=== PATIENT | female | born 1990 | race Hispanic/Latino ===

== ENCOUNTER 2017-05-11 08:04 | Emergency (ER) | payer OTHER ==
[2017-05-11 08:04] VITALS: BMI 30.2
[2017-05-11 08:11] VITALS: PULSE 75; RESP 16; TEMP 98.1
--- NOTE | 2017-05-11 08:22 | ED PDOC ---
Arrival/HPI - General Chief Complaint: Lower Extremity Problem/Injury Time Seen by Provider: 05/11/17 08:14 Historian: Patient - History of Present Illness Narrative History of Present Illness (Text): 05/11/17 08:15 26 year old female whose past medical history includes hypertension presents to the emergency department with right big toe pain after dropping a chair on it while at work today. Patient states she took Tylenol with no improvement. Denies any other complaints. PMD: Dr. Vera Time/Duration: Prior to Arrival Symptom Onset: Sudden Symptom Course: Unchanged Modifying Factors (Text): Tylenol with no improvement Past Medical History - Provider Review Nursing Documentation Reviewed: Yes - Infectious Disease Hx of Infectious Diseases: None - Tetanus Immunization Tetanus Immunization: Up to Date - Cardiac Hx Cardiac Disorders: Yes Hx Hypertension: Yes - Pulmonary Hx Respiratory Disorders: No - Neurological Hx Neurological Disorder: No - HEENT Hx HEENT Disorder: No - Renal Hx Renal Disorder: No - Endocrine/Metabolic Hx Endocrine Disorders: No - Hematological/Oncological Hx Blood Disorders: No - Integumentary Hx Dermatological Disorder: No - Musculoskeletal/Rheumatological Hx Musculoskeletal Disorders: No - Gastrointestinal Hx Gastrointestinal Disorders: No - Genitourinary/Gynecological Hx Genitourinary Disorders: No - Psychiatric Hx Psychophysiologic Disorder: Yes Hx Anxiety: Yes Hx Depression: No Hx Emotional Abuse: No Hx Physical Abuse: No Hx Substance Use: No - Past Surgical History Past Surgical History: No Previous - Surgical History Other/Comment: SX FOR LIP - Anesthesia Hx Anesthesia: Yes Hx Anesthesia Reactions: No Hx Malignant Hyperthermia: No - Suicidal Assessment Feels Threatened In Home Enviroment: No Family/Social History - Physician Review Nursing Documentation Reviewed: Yes Family/Social History: Unknown Family HX Smoking Status: Never Smoked Hx Alcohol Use: Yes Frequency of alcohol use: Socially Hx Substance Use: No Allergies/Home Meds Allergies/Adverse Reactions: Allergies latex Allergy (Verified 05/11/17 08:09) RASH Sulfa (Sulfonamide Antibiotics) Allergy (Verified 05/11/17 08:09) RASH Home Medications: Home Meds Medication Instructions Recorded Confirmed Metoprolol Succinate [Toprol XL] 50 mg PO DAILY 07/01/16 05/11/17 Review of Systems - Review of Systems Musculoskeletal: Other (Left big toe pain ) Physical Exam Vital Signs Reviewed: Yes Vital Signs Temp Pulse Resp BP Pulse Ox 05/11/17 09:18 75 16 155/98 H 98 05/11/17 08:11 98.1 F 75 16 161/105 H 99 Temperature: Afebrile Blood Pressure: Normal Pulse: Regular Respiratory Rate: Normal Appearance: Positive for: Well-Appearing, Non-Toxic Pain Distress: Mild Mental Status: Positive for: Alert and Oriented X 3 - Systems Exam Lower Extremity: Present: Other (Tenderness and ecchymosis to left big toe. No blood under toe nail. No tenderness to other parts of the toe. ) Skin: Present: Warm, Dry, Normal Color. No: Rashes Psychiatric: Present: Alert, Oriented x 3, Normal Insight, Normal Concentration Medical Decision Making ED Course and Treatment: Impression: 26 year old female whose past medical history includes hypertension presents to the emergency department with right big toe pain after dropping a chair on it while at work today. Differential Diagnosis included but are not limited to: Right toe pain r/o fracture Plan: -- XR right foot -- Reassess and disposition Progress Notes: 05/11/17 09:05 X-ray negative as read by me. Will discharge patient to follow up with PMD. Surgical show given for support. Patient agrees with plan. - RAD Interpretation Radiology Orders: 05/11/17 08:14 FOOT RIGHT 3 VIEWS ROUTINE [RAD] Stat - Scribe Statement The provider has reviewed the documentation as recorded by the Rhiannon Sparrow Provider Scribe Attestation: All medical record entries made by the Scribe were at my direction and personally dictated by me. I have reviewed the chart and agree that the record accurately reflects my personal performance of the history, physical exam, medical decision making, and the department course for this patient. I have also personally directed, reviewed, and agree with the discharge instructions and disposition. Disposition/Present on Arrival - Present on Arrival Any Indicators Present on Arrival: No History of DVT/PE: No History of Uncontrolled Diabetes: No Urinary Catheter: No History of Decub. Ulcer: No History Surgical Site Infection Following: None - Disposition Have Diagnosis and Disposition been Completed?: Yes Diagnosis: Toe contusion Disposition: HOME/ ROUTINE Disposition Time: 09:05 Patient Plan: Discharge Condition: IMPROVED Discharge Instructions (ExitCare): Foot Contusion (ED) Additional Instructions: Ms Chang, thank you for letting us take care of you today. Your provider was Dr. Scott. You were treated for Toe contusion. The emergency medical care you received today was directed at your acute symptoms. If you were prescribed any medication, please fill it and take as directed. It may take several days for your symptoms to resolve. Return to the Emergency Department if your symptoms worsen, do not improve, or if you have any other problems. Please contact your doctor or call one of the physicians/clinics you have been referred to that are listed on the Patient Visit Information form that is included in your discharge packet. Bring any paperwork you were given at discharge with you along with any medications you are taking to your follow up visit. Our treatment cannot replace ongoing medical care by a primary care provider (PCP) outside of the emergency department. Thank you for allowing the [facility] team to be part of your care today. If you had an X-Ray or CT scan: A Radiologist will review the ED reading if any change in treatment is needed we will contact you. If you had a blood, urine, or wound culture: It will take several days for the results, if any change in treatment is needed we will contact you. If you had an STI test: It will take 48 hours for the results. Please call after 1 week if you have not heard back. Prescriptions: Ibuprofen [Motrin] 600 mg PO Q6 PRN #30 tab PRN Reason: Pain, Moderate (4-7) Referrals: Nafisa Vera MD [Primary Care Provider] - Follow up with primary Forms: [employer] (Serbian), WORK NOTE
[2017-05-11 09:19] VITALS: BP 155/98; O2SAT 98
--- NOTE | 2017-05-11 09:21 | RAD ---
PROCEDURE: Right Foot Radiographs. HISTORY: injury r/o fx COMPARISON: None. FINDINGS: BONES: Normal. No fracture. JOINTS: Normal. SOFT TISSUES: Normal. OTHER FINDINGS: None. IMPRESSION: Normal right foot radiographs.
== END 2017-05-11 09:19 | disposition home or self-care (01) ==
LOC: ED 08:04
DX: S90.111A Contusion of right great toe without damage to nail, initial encounter (principal); W20.8XXA Other cause of strike by thrown, projected or falling object, initial encounter; Y92.239 Unspecified place in hospital as the place of occurrence of the external cause; Y99.0 Civilian activity done for income or pay; I10 Essential (primary) hypertension

== ENCOUNTER 2018-02-02 12:54 | Emergency (ER) | payer BC, OTHER ==
[2018-02-02 12:54] VITALS: BMI 30.2
[2018-02-02 13:16] VITALS: TEMP 98.5
[2018-02-02] MEDS ORDERED: Apap-Butalbital-Caffeine 325-50-40mg Tab PO STA (13:23)
[2018-02-02] MEDS ORDERED: Sodium Chloride 0.9% 1,000 ML IV STA (13:24)
[2018-02-02 13:43] LABS: BASO # 0.05 K/mm3 (0.0-2.0); BASO % 0.6 % (0.0-3.0); EOS # 0.2 (0.0-0.7); EOS % 2.2 % (1.5-5.0); GRAN # 3.49 (1.4-6.5); HEMOGLOBIN 13.6 g/dL (12.0-16.0); LYMPH # 3.9 (1.2-3.4); LYMPH % 47.4 % (22.0-35.0); MEAN CORPUSCULAR HEMOGLOBIN 28.9 pg (25.0-35.0); MEAN CORPUSCULAR HGB CONC 33.3 g/dl (31.0-37.0); MEAN PLATELET VOLUME 10.4 fl (7.0-11.0); MONO # 0.7 (0.1-0.6); MONO % 7.8 % (1.0-6.0); RBC 4.7 10^6/uL (3.5-6.1); RED CELL DISTRIBUTION WIDTH 13.8 % (11.5-14.5); WHITE BLOOD COUNT 8.3 10^3/ul (4.5-11.0)
[2018-02-02 13:54] LABS: ALB/GLOB RATIO 1.3 (1.1-1.8); ALBUMIN 4.6 g/dL (3.0-4.8); CALCIUM 9.9 mg/dL (8.4-10.5); GFR AFRICAN-AMERICAN > 60; GFR NON-AFRICAN AMERICAN > 60; INR 0.97 (0.93-1.08); PARTIAL THROMBOPLASTIN TIME 30.6 Seconds (25.1-36.5); PROTHROMBIN TIME 11.2 SECONDS (9.4-12.5)
[2018-02-02 14:01] LABS: ALT/SGPT 30 U/L (7-56); AST/SGOT 25 U/L (14-36); BLOOD UREA NITROGEN 12 mg/dL (7-21)
[2018-02-02 14:05] LABS: TROPONIN I < 0.01 ng/mL
[2018-02-02 14:16] LABS: URINE BILIRUBIN NEGATIVE (NEGATIVE); URINE BLOOD NEGATIVE (NEGATIVE); URINE GLUCOSE (UA) NEGATIVE (NEGATIVE); URINE LEUKOCYTE ESTERASE NEGATIVE Leu/uL (NEGATIVE); URINE PROTEIN NEGATIVE mg/dL (<30 mg/dL); URINE UROBILINOGEN 0.2 E.U./dL (<1 E.U./dL)
[2018-02-02 14:18] LABS: URINE APPEARANCE CLEAR (CLEAR); URINE COLOR YELLOW (YELLOW)
--- NOTE | 2018-02-02 14:51 | CT ---
PROCEDURE: CT HEAD WITHOUT CONTRAST. HISTORY: headache COMPARISON: None available. TECHNIQUE: Axial computed tomography images were obtained through the head/brain without intravenous contrast. Radiation dose: Total exam DLP = 899 mGy-cm. This CT exam was performed using one or more of the following dose reduction techniques: Automated exposure control, adjustment of the mA and/or kV according to patient size, and/or use of iterative reconstruction technique. FINDINGS: HEMORRHAGE: No intracranial hemorrhage. BRAIN: No mass effect or edema. No atrophy or chronic microvascular ischemic changes. VENTRICLES: Unremarkable. No hydrocephalus. CALVARIUM: Unremarkable. PARANASAL SINUSES: Unremarkable as visualized. No significant inflammatory changes. MASTOID AIR CELLS: Unremarkable as visualized. No inflammatory changes. OTHER FINDINGS: None. IMPRESSION: Normal CT of the Head.
--- NOTE | 2018-02-02 16:14 | ED PDOC ---
Arrival/HPI - General Chief Complaint: Headache Time Seen by Provider: 02/02/18 13:21 Historian: Patient - History of Present Illness Narrative History of Present Illness (Text): 02/02/18 16:10 27yo female with PMhx of hypertension who present with complaint of sudden onset of severe frontal headache with associated nausea, vomiting, photophobia. Notes 3episodes of nonbloody/billious vomiting since the headache started this afternoon. She denies previous history of this headache. Denies trauma, focal weakness, slurred speech, visual changes, abdominal pain, any other complaint. She states that she did not take any antihypertensive today. Past Medical History - Provider Review Nursing Documentation Reviewed: Yes - Infectious Disease Hx of Infectious Diseases: None - Tetanus Immunization Tetanus Immunization: Up to Date - Cardiac Hx Cardiac Disorders: Yes Hx Hypertension: Yes - Pulmonary Hx Respiratory Disorders: No - Neurological Hx Neurological Disorder: No - HEENT Hx HEENT Disorder: No - Renal Hx Renal Disorder: No - Endocrine/Metabolic Hx Endocrine Disorders: No - Hematological/Oncological Hx Blood Disorders: No - Integumentary Hx Dermatological Disorder: No - Musculoskeletal/Rheumatological Hx Musculoskeletal Disorders: No - Gastrointestinal Hx Gastrointestinal Disorders: No - Genitourinary/Gynecological Hx Genitourinary Disorders: No - Psychiatric Hx Psychophysiologic Disorder: Yes Hx Anxiety: Yes Hx Depression: No Hx Emotional Abuse: No Hx Physical Abuse: No Hx Substance Use: No - Past Surgical History Past Surgical History: No Previous - Surgical History Other/Comment: SX FOR LIP - Anesthesia Hx Anesthesia: Yes Hx Anesthesia Reactions: No Hx Malignant Hyperthermia: No - Suicidal Assessment Feels Threatened In Home Enviroment: No Family/Social History - Physician Review Nursing Documentation Reviewed: Yes Family/Social History: Unknown Family HX Smoking Status: Current Some Days Smoker Hx Alcohol Use: Yes Frequency of alcohol use: Socially Hx Substance Use: No Allergies/Home Meds Allergies/Adverse Reactions: Allergies latex Allergy (Verified 05/11/17 08:09) RASH Sulfa (Sulfonamide Antibiotics) Allergy (Verified 05/11/17 08:09) RASH Home Medications: Home Meds Medication Instructions Recorded Confirmed Nebivolol [Bystolic] 10 mg PO DAILY 02/02/18 02/02/18 Review of Systems - Physician Review All systems were reviewed & negative as marked: Yes - Review of Systems Constitutional: Normal Eyes: Normal ENT: Normal Respiratory: Normal Cardiovascular: Normal Gastrointestinal: Nausea, Vomiting. absent: Abdominal Pain, Constipation, Diarrhea, Hematochezia, Hematemesis Genitourinary Female: Normal Musculoskeletal: Normal Skin: Normal Neurological: Headache. absent: Dizziness, Focal Weakness, Gait Changes, Speech Changes, Facial Droop Endocrine: Normal Hemo/Lymphatic: Normal Psychiatric: Normal Physical Exam Vital Signs Reviewed: Yes Vital Signs Temp Pulse Resp BP Pulse Ox 02/02/18 16:32 57 L 18 125/87 100 02/02/18 13:15 98.5 F 79 19 149/96 H 99 Temperature: Afebrile Blood Pressure: Normal Pulse: Regular Respiratory Rate: Normal Appearance: Positive for: Well-Appearing, Non-Toxic, Comfortable Pain Distress: None Mental Status: Positive for: Alert and Oriented X 3 - Systems Exam Head: Present: Atraumatic, Normocephalic Pupils: Present: PERRL Extroacular Muscles: Present: EOMI Conjunctiva: Present: Normal Mouth: Present: Moist Mucous Membranes Neck: Present: Normal Range of Motion. No: Meningeal Signs Respiratory/Chest: Present: Clear to Auscultation, Good Air Exchange. No: Respiratory Distress, Accessory Muscle Use Cardiovascular: Present: Regular Rate and Rhythm, Normal S1, S2. No: Murmurs Abdomen: Present: Normal Bowel Sounds, Other (Soft). No: Tenderness, Distention , Peritoneal Signs, Rebound, Guarding, McBurney's Point Tender, Rovsing's Sign Present Back: Present: Normal Inspection Upper Extremity: Present: Normal Inspection. No: Cyanosis, Edema Lower Extremity: Present: Normal Inspection. No: Edema Neurological: Present: GCS=15, CN II-XII Intact, Speech Normal, Motor Func Grossly Intact, Normal Sensory Function, Norm Deep Tendon Reflexes, Gait Normal , Memory Normal, Normal 2Pt Descrimination, Other (No focal neurological deficit ) Skin: Present: Warm, Dry, Normal Color. No: Rashes Psychiatric: Present: Alert, Oriented x 3, Normal Insight, Normal Concentration Medical Decision Making ED Course and Treatment: 02/02/18 19:52 Pt's headache improved in ED with medication. She was neurologically intact. Her lab was unremarkable. Head CT - Negative Result was DW the pt and she was Dc home with Fioricet. Referred to a Neuro. - Lab Interpretations Lab Results: 02/02/18 13:26 02/02/18 13:26 Lab Results 02/02/18 15:07: Influenza Typ A,B (EIA) Negative for flu a/b 02/02/18 14:00: Urine Color Yellow, Urine Appearance Clear, Urine pH 6.0, Ur Specific [place] >= 1.030, Urine Protein Negative, Urine Glucose (UA) Negative, Urine Ketones Negative, Urine Blood Negative, Urine Nitrate Negative, Urine Bilirubin Negative, Urine Urobilinogen 0.2, Ur Leukocyte Esterase Negative 02/02/18 13:26: Beta HCG, Quant < 2.39 02/02/18 13:26: Sodium 142, Potassium 4.1, Chloride 103, Carbon Dioxide 26, Anion Gap 17, BUN 12, Creatinine 0.7, Est GFR ( Amer) > 60, Est GFR (Non- Af Amer) > 60, Random Glucose 92, Calcium 9.9, Magnesium 1.9, Total Bilirubin 0.2, AST 25, ALT 30, Alkaline Phosphatase 51, Lactate Dehydrogenase 571, Total Creatine Kinase 91, Troponin I < 0.01, Total Protein 8.1, Albumin 4.6, Globulin 3.5, Albumin/Globulin Ratio 1.3 02/02/18 13:26: PT 11.2, INR 0.97, APTT 30.6 02/02/18 13:26: WBC 8.3, RBC 4.70, Hgb 13.6, Hct 40.9, MCV 87.0, MCH 28.9, MCHC 33.3, RDW 13.8, Plt Count 390, MPV 10.4, Gran % 42.0 L, Lymph % (Auto) 47.4 H, Brooke % (Auto) 7.8 H, Eos % (Auto) 2.2, Baso % (Auto) 0.6, Gran # 3.49, Lymph # ( Auto) 3.9 H, Brooke # (Auto) 0.7 H, Eos # (Auto) 0.2, Baso # (Auto) 0.05 - RAD Interpretation Radiology Orders: 02/02/18 14:06 HEAD W/O CONTRAST [CT] Stat - Medication Orders Current Medication Orders: Discontinued Medications Acetaminophen/Butalbital/Caffeine (Fioricet) 1 tab PO ONCE STA Stop: 02/02/18 13:24 Last Admin: 02/02/18 14:00 Dose: 1 tab MAR Pain Assessment Document 02/02/18 14:00 HI (Rec: 02/02/18 14:37 HI [id number]) Pain Reassessment Is this a pain reassessment? No Re-Assess: [facility] Pain Assessment Document 02/02/18 15:00 HI (Rec: 02/02/18 15:38 HI [id number]) Pain Reassessment Is this a pain reassessment? Yes Sleep Is patient sleeping during reassessment? No Presence of Pain Presence of Pain Yes Pain Scale Used Pain Scale Used Numeric Description Description Pressure Intensity of Pain at present 6 Acceptable Level of Pain 2 Sodium Chloride (Sodium Chloride 0.9%) 1,000 mls @ 999 mls/hr IV .Q1H1M STA Stop: 02/02/18 14:24 Last Admin: 02/02/18 14:00 Dose: 999 mls/hr eMAR Start Stop Document 02/02/18 14:00 HI (Rec: 02/02/18 14:37 HI [id number]) Intravenous Solution Start Date 02/02/18 Start Time 14:00 Ketorolac Tromethamine (Toradol) 30 mg IVP STAT STA Stop: 02/02/18 15:37 Last Admin: 02/02/18 16:11 Dose: 30 mg [facility] Pain Assessment Document 02/02/18 16:11 HI (Rec: 02/02/18 16:11 HI [id number]) Pain Reassessment Is this a pain reassessment? Yes IVP Administration Document 02/02/18 16:11 HI (Rec: 02/02/18 16:11 HI [id number]) Charges for Administration # of IVP Administrations 1 Ondansetron HCl (Zofran Inj) 4 mg IVP STAT STA Stop: 02/02/18 13:24 Last Admin: 02/02/18 14:00 Dose: 4 mg IVP Administration Document 02/02/18 14:00 HI (Rec: 02/02/18 14:37 HI [id number]) Charges for Administration # of IVP Administrations 1 Disposition/Present on Arrival - Present on Arrival Any Indicators Present on Arrival: No History of DVT/PE: No History of Uncontrolled Diabetes: No Urinary Catheter: No History of Decub. Ulcer: No History Surgical Site Infection Following: None - Disposition Have Diagnosis and Disposition been Completed?: Yes Diagnosis: Headache Disposition: HOME/ ROUTINE Disposition Time: 16:20 Patient Plan: Discharge Condition: STABLE Discharge Instructions (ExitCare): Headache, Adult (DC) Additional Instructions: Follow up with your doctor/Neurologist Return to ED for any new or worsening symptoms Prescriptions: Acetaminophen/Butalbital/Caf [Fioricet] 1 tab PO Q4 #15 tab Ondansetron ODT [Zofran ODT] 4 mg PO Q6 #7 odt Referrals: Nafisa Vera MD [Primary Care Provider] - Follow up with primary Forms: [facility] (Faroese), SCHOOL NOTE, WORK NOTE
[2018-02-02 16:32] VITALS: BP 125/87; PULSE 57; RESP 18; O2SAT 100
--- NOTE | 2018-02-03 11:30 | CARD ---
APPROVED REPORT EKG Measurement Heart [id number] <Conclusion> Normal sinus rhythm with sinus arrhythmia Possible Left atrial enlargement T wave inversion V1-V3.
== END 2018-02-02 16:48 | disposition home or self-care (01) ==
LOC: ED 12:54
DX: R51 Headache (principal); F17.200 Nicotine dependence, unspecified, uncomplicated; I10 Essential (primary) hypertension
CPT/HCPCS: 70450; 80053; 81003; 82550; 83615; 83735; 84484; 84702; 85025; 85610; 85730; 87804; 93005; 96374; 96375; 99285; J1885; J2405; J7040

== ENCOUNTER 2018-04-09 14:24 | Emergency (ER) | payer OTHER ==
[2018-04-09 14:24] VITALS: BMI 30.2
[2018-04-09 14:30] VITALS: TEMP 97.8
--- NOTE | 2018-04-09 14:47 | ED PDOC ---
Arrival/HPI - General Chief Complaint: Female Genitourinary Time Seen by Provider: 04/09/18 14:34 Historian: Patient - History of Present Illness Narrative History of Present Illness (Text): 04/09/18 14:41 27yo female with history of hypertension who present for evaluation s/p she experienced burning sensation after wiping her self with tissue in ICU bathroom. She notes that the bathroom was cleaned with unknown chemical today. States the burning sensation is currently resolved after wiping herself with patient care wipes. States she is currently menstruating and declined pelvic test. She denies any other complaint. Past Medical History - Provider Review Nursing Documentation Reviewed: Yes - Infectious Disease Hx of Infectious Diseases: None - Tetanus Immunization Tetanus Immunization: Up to Date - Cardiac Hx Cardiac Disorders: Yes Hx Hypertension: Yes - Pulmonary Hx Respiratory Disorders: No - Neurological Hx Neurological Disorder: No - HEENT Hx HEENT Disorder: No - Renal Hx Renal Disorder: No - Endocrine/Metabolic Hx Endocrine Disorders: No - Hematological/Oncological Hx Blood Disorders: No - Integumentary Hx Dermatological Disorder: No - Musculoskeletal/Rheumatological Hx Musculoskeletal Disorders: No - Gastrointestinal Hx Gastrointestinal Disorders: No - Genitourinary/Gynecological Hx Genitourinary Disorders: No - Psychiatric Hx Psychophysiologic Disorder: Yes Hx Anxiety: Yes Hx Substance Use: No - Past Surgical History Past Surgical History: No Previous - Surgical History Other/Comment: SX FOR LIP - Anesthesia Hx Anesthesia: Yes Hx Anesthesia Reactions: No Hx Malignant Hyperthermia: No - Suicidal Assessment Feels Threatened In Home Enviroment: No Family/Social History - Physician Review Nursing Documentation Reviewed: Yes Family/Social History: Unknown Family HX Smoking Status: Light Smoker < 10 Cigarettes Daily Hx Alcohol Use: Yes Frequency of alcohol use: Socially Hx Substance Use: No Allergies/Home Meds Allergies/Adverse Reactions: Allergies latex Allergy (Verified 04/09/18 14:30) RASH Sulfa (Sulfonamide Antibiotics) Allergy (Verified 04/09/18 14:30) RASH Home Medications: Home Meds Medication Instructions Recorded Confirmed Nebivolol [Bystolic] 10 mg PO DAILY 02/02/18 04/09/18 Review of Systems - Physician Review All systems were reviewed & negative as marked: Yes - Review of Systems Constitutional: Normal Eyes: Normal ENT: Normal Respiratory: Normal Cardiovascular: Normal Gastrointestinal: Normal Genitourinary Female: Other (Burning vagina) Musculoskeletal: Normal Skin: Normal Neurological: Normal Endocrine: Normal Hemo/Lymphatic: Normal Psychiatric: Normal Physical Exam Vital Signs Reviewed: Yes Vital Signs Temp Pulse Resp BP Pulse Ox 04/09/18 15:02 66 17 126/85 100 04/09/18 14:34 97.8 F 84 18 127/89 98 04/09/18 14:27 97.8 F 84 18 127/89 99 Temperature: Afebrile Blood Pressure: Normal Pulse: Regular Respiratory Rate: Normal Appearance: Positive for: Well-Appearing, Non-Toxic, Comfortable Pain Distress: None Mental Status: Positive for: Alert and Oriented X 3 - Systems Exam Head: Present: Atraumatic, Normocephalic Pupils: Present: PERRL Extroacular Muscles: Present: EOMI Conjunctiva: Present: Normal Mouth: Present: Moist Mucous Membranes Neck: Present: Normal Range of Motion Respiratory/Chest: Present: Clear to Auscultation, Good Air Exchange. No: Respiratory Distress, Accessory Muscle Use Cardiovascular: Present: Regular Rate and Rhythm, Normal S1, S2. No: Murmurs Abdomen: No: Tenderness, Distention, Peritoneal Signs Genitourinary/Pelvic Exam: Present: Other (Declined) Back: Present: Normal Inspection Upper Extremity: Present: Normal Inspection. No: Cyanosis, Edema Lower Extremity: Present: Normal Inspection. No: Edema Neurological: Present: GCS=15, CN II-XII Intact, Speech Normal Skin: Present: Warm, Dry, Normal Color. No: Rashes Psychiatric: Present: Alert, Oriented x 3, Normal Insight, Normal Concentration Medical Decision Making ED Course and Treatment: 04/09/18 18:36 PT declined pelvic exam in ED. States she feels fine, that burning sensation resolved. Disposition/Present on Arrival - Present on Arrival Any Indicators Present on Arrival: No History of DVT/PE: No History of Uncontrolled Diabetes: No Urinary Catheter: No History of Decub. Ulcer: No History Surgical Site Infection Following: None - Disposition Have Diagnosis and Disposition been Completed?: Yes Diagnosis: Vaginal irritation Disposition: HOME/ ROUTINE Disposition Time: 14:50 Patient Plan: Discharge Condition: STABLE Discharge Instructions (ExitCare): Vaginal Discharge in Adults Additional Instructions: Follow up with employee health [facility] Employee Regarding your Work Related Injury, you are instructed to do all of the following by next day: 1. Notify [facility] Employee Health Department of the sustained injury and arrange for any follow-up appointments if needed during the next business day. If the office is closed or no answer is received, please leave a detailed voice message. Message should include your full name, department and hospice manager, date of injury, date of ED visit if applicable. Employee Health can be reached at [phone]. 2. If there is time lost, notify [facility] Human Resources Department of the work related injury the next business day at [phone]. to ED for any new symptoms [facility]errals: [facility] [Outside] - Follow up with primary Forms: [facility] (Danish)
[2018-04-09 15:06] VITALS: BP 126/85; PULSE 66; RESP 17; O2SAT 100
== END 2018-04-09 15:03 | disposition home or self-care (01) ==
LOC: ED 14:24
DX: N89.8 Other specified noninflammatory disorders of vagina (principal); I10 Essential (primary) hypertension; F17.210 Nicotine dependence, cigarettes, uncomplicated

== ENCOUNTER 2018-09-15 20:09 | Emergency (ER) | payer OTHER ==
[2018-09-15 20:41] VITALS: RESP 18; TEMP 98.3; BMI 29.8
[2018-09-15] MEDS ORDERED: Sodium Chloride 0.9% 1,000 ML IV STA (20:45)
--- NOTE | 2018-09-15 20:45 | ED PDOC ---
Arrival/HPI - General Historian: Patient - History of Present Illness Narrative History of Present Illness (Text): 09/15/18 20:35 28 year old female, pmh including htn? and gastritis, allergic to sulfa, complaining of epigastric abdominal pain x 3 days. Aching and gnawing pain, on and off, associated with nausea and occasional vomiting, no tearing sensation, no chest pain or shortness of breath, no rash, no dizziness, no night sweat, no palpitation, no numbness or tingling, no other medical or psychological complaints. <Allen Choudhury - Last Filed: 09/15/18 23:00> <Diallo Tracy - Last Filed: 09/16/18 06:29> - General Time Seen by Provider: 09/15/18 20:15 Past Medical History - Provider Review Nursing Documentation Reviewed: Yes - Infectious Disease Hx of Infectious Diseases: None - Tetanus Immunization Tetanus Immunization: Up to Date - Cardiac Hx Cardiac Disorders: Yes Hx Hypertension: Yes - Pulmonary Hx Respiratory Disorders: No - Neurological Hx Neurological Disorder: No - HEENT Hx HEENT Disorder: No - Renal Hx Renal Disorder: No - Endocrine/Metabolic Hx Endocrine Disorders: No - Hematological/Oncological Hx Blood Disorders: No - Integumentary Hx Dermatological Disorder: No - Musculoskeletal/Rheumatological Hx Musculoskeletal Disorders: No - Gastrointestinal Hx Gastrointestinal Disorders: No - Genitourinary/Gynecological Hx Genitourinary Disorders: No - Psychiatric Hx Psychophysiologic Disorder: Yes Hx Anxiety: Yes Hx Substance Use: No - Past Surgical History Past Surgical History: No Previous - Surgical History Other/Comment: SX FOR LIP - Anesthesia Hx Anesthesia: Yes Hx Anesthesia Reactions: No Hx Malignant Hyperthermia: No - Suicidal Assessment Feels Threatened In Home Enviroment: No <Allen Choudhury - Last Filed: 09/15/18 23:00> Family/Social History - Physician Review Nursing Documentation Reviewed: Yes Family/Social History: Unknown Family HX Smoking Status: Light Smoker < 10 Cigarettes Daily Hx Alcohol Use: Yes Hx Substance Use: No <Allen Choudhury - Last Filed: 09/15/18 23:00> Allergies/Home Meds <Allen Choudhury - Last Filed: 09/15/18 23:00> <Diallo Tracy - Last Filed: 09/16/18 06:29> Allergies/Adverse Reactions: Allergies latex Allergy (Verified 09/15/18 20:32) RASH Sulfa (Sulfonamide Antibiotics) Allergy (Verified 09/15/18 20:32) RASH Home Medications: Home Meds Medication Instructions Recorded Confirmed Nebivolol [Bystolic] 10 mg PO DAILY 02/02/18 09/15/18 Review of Systems - Review of Systems Constitutional: absent: Fatigue, Fevers Eyes: absent: Vision Changes ENT: absent: Hearing Changes Respiratory: absent: SOB, Cough Cardiovascular: absent: Chest Pain Gastrointestinal: Abdominal Pain, Nausea, Vomiting. absent: Diarrhea Musculoskeletal: absent: Arthralgias, Back Pain Skin: absent: Rash, Pruritis Hemo/Lymphatic: absent: Adenopathy, Easy Bleeding Psychiatric: absent: Anxiety, Depression <Allen Choudhury Q - Last Filed: 09/15/18 23:00> Physical Exam Vital Signs Reviewed: Yes Vital Signs Temp Pulse Resp BP Pulse Ox 09/15/18 20:32 98.3 F 85 18 148/96 H 99 Temperature: Afebrile Blood Pressure: Hypertensive Pulse: Regular Respiratory Rate: Normal Appearance: Positive for: Well-Appearing, Non-Toxic, Comfortable Pain Distress: Moderate Mental Status: Positive for: Alert and Oriented X 3 - Systems Exam Head: Present: Atraumatic, Normocephalic Pupils: Present: PERRL Extroacular Muscles: Present: EOMI Conjunctiva: Present: Normal Mouth: Present: Moist Mucous Membranes Neck: Present: Normal Range of Motion Respiratory/Chest: Present: Clear to Auscultation, Good Air Exchange. No: Re spiratory Distress, Accessory Muscle Use Cardiovascular: Present: Regular Rate and Rhythm, Normal S1, S2. No: Murmurs Abdomen: Present: Tenderness (epigastric tenderness), Normal Bowel Sounds. No: Distention, Peritoneal Signs, Rebound, Guarding, McBurney's Point Tender, Rovsing's Sign Present, Hernias Back: Present: Normal Inspection Upper Extremity: Present: Normal Inspection. No: Cyanosis, Edema Lower Extremity: Present: Normal Inspection. No: Edema Neurological: Present: GCS=15, CN II-XII Intact, Speech Normal Skin: Present: Warm, Dry, Normal Color. No: Rashes Psychiatric: Present: Alert, Oriented x 3, Normal Insight, Normal Concentration <Allen Choudhury Q - Last Filed: 09/15/18 23:00> Vital Signs Temp Pulse Resp BP Pulse Ox 09/15/18 20:32 98.3 F 85 18 148/96 H 99 <Diallo Tracy - Last Filed: 09/16/18 06:29> Medical Decision Making ED Course and Treatment: 09/15/18 20:49 -Labs -Abdominal sonogram -IVF/pepcid/zofran -Observe and reassess 09/15/18 23:01 -Urine hcg is negative -Abdominal sonogram -Labs show no acute findings show Essentially unremarkable right upper quadrant ultrasound. The aorta is unremarkable. Portal and venous structure lesion as well as the IVC are within normal limits. The pancreas is partially obscured by bowel gas. -Mg within normal limit -Lipase is negative -Trop is negative after 24 hours. -UA show no UTI -All labs/radiology results, she is feeling much better, request to be discharged home. -Discharge home with prilosec and take it during the morning with a glass of water, avoid acidic/spicy/sour food, avoid 2 hours before sleeping, eat smaller portion meal but frequently, follow up with the pmd and GI for follow up including if h.pylori or endoscopy would be indicated, return to the ER for any new or worsening signs or symptoms. - RAD Interpretation Narrative RAD Interpretations (Text): US Abdomen: LIVER: Within normal limits in size and echogenicity. No mass. GALLBLADDER: The gallbladder appears within normal limits. No gallbladder wall thickening or pericholecystic fluid. COMMON BILE DUCT: No dilation. PANCREAS: The pancreas is partially obscured by bowel gas. Aorta AND IVC: wnl. RIGHT KIDNEY: Unremarkable. Normal renal contours. No renal mass or calculus. No hydronephrosis. MISCELLANEOUS: Essentially unremarkable right upper quadrant ultrasound The aorta is unremarkable. Portal and venous structure lesion as well as the IVC are within normal limits. IMPRESSION: 1. Essentially unremarkable right upper quadrant ultrasound 2. The aorta is unremarkable. Portal and venous structure lesion as well as the IVC are within normal limits. 3. The pancreas is partially obscured by bowel gas. 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 <Allen Choudhury - Last Filed: 09/15/18 23:00> - Lab Interpretations Lab Results: 09/15/18 21:15 09/15/18 21:15 Lab Results 09/15/18 21:15: WBC 10.3, RBC 4.58, Hgb 13.2, Hct 41.1, MCV 89.7, MCH 28.8, MCHC 32.1, RDW 13.8, Plt Count 338, MPV 10.5, Gran % 59.8, Lymph % (Auto) 30.8, [place] % (Auto) 8.2 H, Eos % (Auto) 1.0 L, Baso % (Auto) 0.2, Gran # 6.17, Lymph # (Auto) 3.2, [place] # (Auto) 0.9 H, Eos # (Auto) 0.1, Baso # (Auto) 0.02 09/15/18 21:15: Sodium 139, Potassium 3.9, Chloride 102, Carbon Dioxide 28, Anion Gap 14, BUN 9, Creatinine 0.6 L, Est GFR ( Amer) > 60, Est GFR (Non-Af Amer) > 60, Random Glucose 91, Calcium 9.5, Magnesium 1.9, Total Bilirubin 0.4, AST 24, ALT 31, Alkaline Phosphatase 54, Troponin I < 0.01, Total Protein 8.3, Albumin 4.7, Globulin 3.5, Albumin/Globulin Ratio 1.3, Lipase 153 09/15/18 20:45: Urine Color Yellow, Urine Appearance Clear, Urine pH 6.0, Ur Specific [place] 1.015, Urine Protein Negative, Urine Glucose (UA) Negative, Urine Ketones Negative, Urine Blood Negative, Urine Nitrate Negative, Urine Bilirubin Negative, Urine Urobilinogen 0.2, Ur Leukocyte Esterase Negative - RAD Interpretation Radiology Orders: 09/15/18 20:45 GALLBLADDER & HEPATIC [US] Stat - Medication Orders Current Medication Orders: Discontinued Medications Famotidine (Pepcid) 20 mg IVP STAT STA Stop: 09/15/18 20:46 Last Admin: 09/15/18 21:15 Dose: 20 mg IVP Administration Document 09/15/18 21:15 CNR (Rec: 09/15/18 21:15 CNR [id number]) Charges for Administration # of IVP Administrations 1 Sodium Chloride (Sodium Chloride 0.9%) 1,000 mls @ 999 mls/hr IV .Q1H1M STA Stop: 09/15/18 21:45 Last Admin: 09/15/18 21:14 Dose: 999 mls/hr eMAR Start Stop Document 09/15/18 21:14 CNR (Rec: 09/15/18 21:14 CNR [id number]) Intravenous Solution Start Date 09/15/18 Start Time 21:14 End Date 09/15/18 End time 22:14 Total Infusion Time 60 Ondansetron HCl (Zofran Inj) 4 mg IVP STAT STA Stop: 09/15/18 20:46 Last Admin: 09/15/18 21:15 Dose: 4 mg IVP Administration Document 09/15/18 21:15 CNR (Rec: 09/15/18 21:15 CNR [id number]) Charges for Administration # of IVP Administrations 1 <Diallo Tracy - Last Filed: 09/16/18 06:29> - PA / [employer]GSHEAD BUILDER / Resident Statement BRUNO has reviewed & agrees with the documentation as recorded. <Allen Choudhury - Last Filed: 09/15/18 23:00> - PA / HOGSHEAD BUILDER / Resident Statement BRUNO has reviewed & agrees with the documentation as recorded. <Diallo Tracy - Last Filed: 09/16/18 06:29> Disposition/Present on Arrival - Present on Arrival Any Indicators Present on Arrival: No History of DVT/PE: No History of Uncontrolled Diabetes: No Urinary Catheter: No History of Decub. Ulcer: No History Surgical Site Infection Following: None - Disposition Have Diagnosis and Disposition been Completed?: Yes Disposition Time: 23:16 Patient Plan: Discharge <Allen Choudhury - Last Filed: 09/15/18 23:00> <Diallo Tracy - Last Filed: 09/16/18 06:29> - Disposition Diagnosis: Gastritis Disposition: HOME/ ROUTINE Condition: IMPROVED Additional Instructions: -Discharge home with prilosec and take it during the morning with a glass of water, avoid acidic/spicy/sour food, avoid 2 hours before sleeping, eat smaller portion meal but frequently, follow up with the pmd and GI for follow up including if h.pylori or endoscopy would be indicated, return to the ER for any new or worsening signs or symptoms. Prescriptions: Omeprazole Magnesium [Prilosec Otc] 20 mg PO DAILY #21 tcp Referrals: Nafisa Vera MD [Primary Care Provider] - Follow up with primary Justine Bundy MD [Medical Doctor] - Follow up with primary Forms: WORK NOTE
[2018-09-15 21:03] LABS: URINE BILIRUBIN NEGATIVE (NEGATIVE); URINE BLOOD NEGATIVE (NEGATIVE); URINE GLUCOSE (UA) NEGATIVE (NEGATIVE); URINE LEUKOCYTE ESTERASE NEGATIVE Leu/uL (NEGATIVE); URINE PROTEIN NEGATIVE mg/dL (<30 mg/dL); URINE UROBILINOGEN 0.2 E.U./dL (<1 E.U./dL)
[2018-09-15 21:07] LABS: URINE APPEARANCE CLEAR (CLEAR); URINE COLOR YELLOW (YELLOW)
[2018-09-15 21:33] LABS: BASO # 0.02 K/mm3 (0.0-2.0); BASO % 0.2 % (0.0-3.0); EOS # 0.1 (0.0-0.7); GRAN # 6.17 (1.4-6.5); GRAN % 59.8 % (50.0-68.0); HEMOGLOBIN 13.2 g/dL (12.0-16.0); LYMPH # 3.2 (1.2-3.4); LYMPH % 30.8 % (22.0-35.0); MEAN CELL VOLUME 89.7 fl (80.0-105.0); MEAN CORPUSCULAR HEMOGLOBIN 28.8 pg (25.0-35.0); MEAN CORPUSCULAR HGB CONC 32.1 g/dl (31.0-37.0); MEAN PLATELET VOLUME 10.5 fl (7.0-11.0); MONO # 0.9 (0.1-0.6); MONO % 8.2 % (1.0-6.0); RBC 4.58 10^6/uL (3.5-6.1); RED CELL DISTRIBUTION WIDTH 13.8 % (11.5-14.5); WHITE BLOOD COUNT 10.3 10^3/uL (4.5-11.0)
[2018-09-15 21:50] LABS: TROPONIN I < 0.01 ng/mL
[2018-09-15 21:52] LABS: ALB/GLOB RATIO 1.3 (1.1-1.8); ALBUMIN 4.7 g/dL (3.0-4.8); ALT/SGPT 31 U/L (7-56); AST/SGOT 24 U/L (14-36); BLOOD UREA NITROGEN 9 mg/dL (7-21); CALCIUM 9.5 mg/dL (8.4-10.5); GFR NON-AFRICAN AMERICAN > 60; LIPASE 153 U/L (23-300)
[2018-09-15 23:27] VITALS: BP 113/63; PULSE 72; O2SAT 100
--- NOTE | 2018-09-16 09:14 | US ---
Date of service: 09/15/2018 HISTORY: epigastric abdominal pain COMPARISON: None. TECHNIQUE: Sonographic evaluation of the right upper quadrant of the abdomen. FINDINGS: LIVER: Measures 14.4 cm in length. There are increased poorly defined echoes at the medial left lobe liver with dirty shadowing posteriorly potentially reflecting pneumobilia though this is not definite. This may reflect a benign hemangioma. Follow-up CT of the abdomen pelvis is advised for greater characterization. Otherwise, increased echogenicity seen throughout the liver in general suggesting hepatic steatosis. Other infiltrative processes possible. GALLBLADDER: Gallbladder is mildly distended and otherwise appears unremarkable. COMMON BILE DUCT: Measures 3.1 mm. No stones. No dilatation. PANCREAS: The head and tail the pancreas are obscured by overlying bowel gas with remainder unremarkable. RIGHT KIDNEY: Measures 10.2 cm in length. Normal echogenicity. No calculus, mass, or hydronephrosis. AORTA: No aneurysmal dilatation. IVC: Unremarkable. OTHER FINDINGS: None . IMPRESSION: 1. Potential pneumobilia medial left lobe liver versus possible benign hemangioma. Follow-up CT with contrast is advised for added characterization of the liver. Hepatic steatosis or other infiltrative process present. 2. Partial imaging of pancreas. Remainder the examination appears unremarkable.
== END 2018-09-15 23:26 | disposition home or self-care (01) ==
LOC: ED 20:09
DX: K29.70 Gastritis, unspecified, without bleeding (principal); I10 Essential (primary) hypertension; F17.210 Nicotine dependence, cigarettes, uncomplicated
CPT/HCPCS: 76705; 80053; 81003; 83690; 83735; 84484; 85025; 96361; 96374; 96375; 99283; J2405; J7030

== ENCOUNTER 2018-11-24 10:39 | Outpatient (CLI) | payer OTHER | END 2018-11-24 10:40 | disposition home or self-care (01) | LOC: LAB 10:39 | DX: Z01.84 Encounter for antibody response examination (principal) ==